=== PATIENT | female | born 1980 | race African-American/Black ===

== ENCOUNTER 2022-10-03 13:25 | Emergency (ER) | payer MEDICAID ==
[~2022-10-03] VITALS: Ht 149.9 cm; Wt 108.0 kg
[2022-10-03 14:38] VITALS: BP 116/73
== END 2022-10-03 14:52 | disposition home or self-care (01) ==
LOC: ER 13:25
DX: S93.402A Sprain of unspecified ligament of left ankle, initial encounter (principal); X50.1XXA Overexertion from prolonged static or awkward postures, initial encounter; Y93.89 Activity, other specified; Y92.89 Other specified places as the place of occurrence of the external cause; Y99.8 Other external cause status